=== PATIENT | female | born 1985 | race Caucasian/White ===

== ENCOUNTER 2016-08-24 19:19 | Emergency (ER) | payer OTHER ==
[2016-08-24] MEDS ORDERED: SODIUM CHLORIDE 0.9% 1,000 ML ONE (21:43)
[2016-08-24] MEDS ORDERED: ONDANSETRON 4 MG VIAL ONE (21:43)
[2016-08-24] MEDS ORDERED: KETOROLAC 30 MG/ML VIAL ONE (21:43)
[2016-08-25] MEDS ORDERED: ACETAMINOPHEN 325 MG TAB ONE (01:49)
== END 2016-08-24 23:11 | disposition home or self-care (01) ==
LOC: ER 19:19
CPT/HCPCS: 36415; 74176; 80053; 81001; 83690; 84703; 85025; 96361; 96374; 96375

== ENCOUNTER 2016-09-07 22:05 | Emergency (ER) | payer OTHER ==
[2016-09-07] MEDS ORDERED: DILAUDID 1 MG/ML AMP ONE (23:42)
[2016-09-07] MEDS ORDERED: SODIUM CHLORIDE 0.9% 1,000 ML ONE (23:42)
[2016-09-07] MEDS ORDERED: ONDANSETRON 4 MG VIAL ONE (23:42)
[2016-09-08] MEDS ORDERED: DILAUDID 1 MG/ML AMP ONE (02:06)
[2016-09-08] MEDS ORDERED: KETOROLAC 30 MG/ML VIAL ONE (02:06)
== END 2016-09-08 02:38 | disposition home or self-care (01) ==
LOC: ER 22:05
DX: K58.0 Irritable bowel syndrome with diarrhea (principal)
CPT/HCPCS: 36415; 80053; 83690; 84703; 85025; 96361; 96374; 96375; 96376